=== PATIENT | female | born 1975 | race Caucasian/White ===

== ENCOUNTER 2022-10-29 09:51 | Outpatient (CLI) | payer BC, SELFPAY ==
--- NOTE | ~2022-10-29 | US_ITS ---
EXAMINATION: US venous doppler LE RT DATE: 10/29/2022 10:48 INDICATION: Right calf pain. TECHNIQUE: Grayscale ultrasound images without and with compression and Doppler ultrasound images of the right lower extremity veins were obtained. COMPARISON: None. FINDINGS: The visualized portions of right common femoral vein, profunda (deep) femoral vein, femoral vein, pop liteal vein, peroneal veins, posterior tibial veins, and greater saphenous vein outflow are patent. IMPRESSION: 1. No deep venous thrombosis. Reviewed, dictated and finalized at location A.
== END 2022-10-29 09:52 | disposition home or self-care (01) ==
PROVIDERS: PCP Family Medicine; Visit Provider Family Medicine
DX: M79.661 Pain in right lower leg (principal)
CPT/HCPCS: 93971

== ENCOUNTER 2024-02-22 10:41 | Outpatient (CLI) | payer BC, SELFPAY ==
--- NOTE | ~2024-02-22 | US_ITS ---
EXAMINATION: US transvaginal DATE: 02/22/2024 11:30 INDICATION: Menometrorrhagia. TECHNIQUE: Multiple transvaginal sonographic images of the pelvis were obtained. COMPARISON: None. FINDINGS: The uterus measures 8.4 x 3.6 x 4.7 cm. There is physiologic free fluid in the pelvis. The endometria l complex measures 4 mm in thickness. There is an 8 mm intramural fibroid. The right ovary measures 2 .1 x 1.3 x 1.9 cm. The left ovary measures 2.1 x 1.0 x 1.8 cm. There is normal vascular flow in the o varies. IMPRESSION: 1. Small uterine fibroid. Reviewed, dictated and finalized at location A. IMPRESSION: 1. Small uterine fibroid.
== END 2024-02-22 10:42 | disposition home or self-care (01) ==
PROVIDERS: PCP Internal Medicine; Visit Provider Internal Medicine
DX: D25.9 Leiomyoma of uterus, unspecified (principal); N92.1 Excessive and frequent menstruation with irregular cycle
CPT/HCPCS: 76830